=== PATIENT | male | born 1945 | race Caucasian/White ===

== ENCOUNTER 2023-10-18 13:49 | Outpatient (CLI) | payer MEDICARE | END 2023-10-18 13:50 | disposition home or self-care (01) | LOC: CSHULT 13:49 | PROVIDERS: ATTEND Family Medicine | DX: R09.89 Other specified symptoms and signs involving the circulatory and respiratory systems (principal); I65.23 Occlusion and stenosis of bilateral carotid arteries | CPT/HCPCS: 93880 ==